=== PATIENT | male | born 1965 | race African-American/Black ===

== ENCOUNTER 2018-06-04 06:55 | Inpatient (IN) | payer BC ==
[~2018-06-04] VITALS: Ht 188 cm; Wt 90.7 kg
[~2018-06-04 06:55] MED LIST: NKM; TERBINAFINE HC250 MG PO
[2018-06-04] MEDS ORDERED: FOLIC ACID0.4 MG ORAL (07:10)
[2018-06-04 07:16] VITALS: BP 116/76
--- NOTE | 2018-06-04 07:35 | Emergency Room Report ---
History of Present Illness General Chief Complaint: Dizziness Source: Patient Present Illness HPI Patient presents with reports of lightheadedness dizziness And report of syncopal episode at home Patient reports that he was in the shower patient's partner reports that he was in the restroom as well when he heard the fall Patient appeared to be disoriented for a few seconds and became oriented soon after that Patient complains of weakness and lightheadedness Denies any chest pain or short of breath denies any vomiting or diarrhea Denies any recent fevers or illness Also complaining of right mid back pain Allergies: Coded Allergies: No Known Allergies (Unverified , 03/23/16) Patient History Past Medical History: see triage record Pertinent Family History: none Reviewed Nursing Documentation: PMH: Agreed; PSxH: Agreed Nursing Documentation-PMH Past Medical History: No History, Except For Hx Cardiac Problems: No Hx Cancer: No Hx Gastrointestinal Problems: Yes Hx Neurological Problems: No Review of Systems All Other Systems: negative except mentioned in HPI Physical Exam Vital Signs Date Time Temp Pulse Resp B/P (MAP) Pulse Ox O2 Delivery O2 Flow Rate FiO2 06/04/18 07:05 98.2 92 16 116/76 95 Room Air Sp02 EP Interpretation: reviewed, normal General Appearance: well appearing, no apparent distress Head: normocephalic, atraumatic Eyes: bilateral eye PERRL, bilateral eye EOMI ENT: hearing grossly normal, normal pharynx, TMs + canals normal, uvula midline Neck: full range of motion, supple, no meningismus, no bony tend Respiratory: lungs clear, normal breath sounds, no rhonchi, no respiratory distress, no retraction, no accessory muscle use Cardiovascular #1: normal peripheral pulses, regular rate, rhythm, no edema, no gallop, no JVD, no murmur Gastrointestinal: normal bowel sounds, non tender, soft, no mass, no organomegaly, non-distended, no guarding, no hernia, no pulsatile mass, no rebound Genitourinary: no CVA tenderness Musculoskeletal: normal inspection Neurologic: oriented x3, responsive, teleprinter installer III-XII nml as tested, motor strength/ tone normal, sensory intact Psychiatric: mood/affect normal Skin: normal color, no rash, warm/dry, palpation normal Lymphatic: normal inspection, no adenopathy Medical Decision Making Diagnostic Impression: Primary Impression: Syncope Additional Impression: Dizziness ER Course Patient is a fairly complex patient with multiple differential to consideration including but not limited to cardiac cardiopulmonary and vascular emergencies Patient at this time is awake and alert GCS 15 Does not meet criteria for any further imaging of the brain Patient's blood work reveals pancytopenia Patient reports some lightheadedness still At this time will require further inpatient care In discussion with the patient's primary physician he reports that the patient did have previous alcohol disease has missed several follow-ups with him And patient will have close inpatient care Labs Test 06/04/18 07:52 06/04/18 15:09 06/04/18 23:20 White Blood Count 4.2 K/UL (4.8-10.8) Red Blood Count 5.54 M/UL (4.70-6.10) Hemoglobin 13.3 G/DL (14.2-18.0) Hematocrit 43.5 % (42.0-52.0) Mean Corpuscular Volume 79 FL (80-99) Mean Corpuscular Hemoglobin 24.0 PG (27.0-31.0) Mean Corpuscular Hemoglobin Concent 30.6 G/DL (32.0-36.0) Red Cell Distribution Width 14.0 % (11.6-14.8) Platelet Count 146 K/UL (150-450) Mean Platelet Volume 6.8 FL (6.5-10.1) Neutrophils (%) (Auto) 40.6 % (45.0-75.0) Lymphocytes (%) (Auto) 36.9 % (20.0-45.0) Monocytes (%) (Auto) 16.7 % (1.0-10.0) Eosinophils (%) (Auto) 4.0 % (0.0-3.0) Basophils (%) (Auto) 1.8 % (0.0-2.0) Sodium Level 142 MMOL/L (136-145) Potassium Level 3.7 MMOL/L (3.5-5.1) Chloride Level 107 MMOL/L (98-107) Carbon Dioxide Level 26 MMOL/L (21-32) Anion Gap 9 mmol/L (5-15) Blood Urea Nitrogen 11 mg/dL (7-18) Creatinine 1.0 MG/DL (0.55-1.30) Estimat Glomerular Filtration Rate > 60 mL/min (>60) Glucose Level 102 MG/DL (74-106) Calcium Level 8.6 MG/DL (8.5-10.1) Total Bilirubin 0.6 MG/DL (0.2-1.0) Aspartate Amino Transf (AST/SGOT) 105 U/L (15-37) Alanine Aminotransferase (ALT/SGPT) 79 U/L (12-78) Alkaline Phosphatase 95 U/L (46-116) Total Creatine Kinase 107 U/L (26-308) Creatine Kinase MB < 0.5 NG/ML (0.0-3.6) Creatine Kinase MB Relative Index 0.4 Troponin I 0.009 ng/mL (0.000-0.056) Total Protein 7.4 G/DL (6.4-8.2) Albumin 3.9 G/DL (3.4-5.0) Globulin 3.5 g/dL Albumin/Globulin Ratio 1.1 (1.0-2.7) Lipase 164 U/L (73-393) Prothrombin Time 11.3 SEC (9.30-11.50) Prothromb Time International Ratio 1.1 (0.9-1.1) Activated Partial Thromboplast Time 27 SEC (23-33) Serum Alcohol 6 mg/dL Urine Color Yellow Urine Appearance Clear Urine pH 7 (4.5-8.0) Urine Specific [place] 1.010 (1.005-1.035) Urine Protein Negative (NEGATIVE) Urine Glucose (UA) Negative (NEGATIVE) Urine Ketones Negative (NEGATIVE) Urine Blood 1+ (NEGATIVE) Urine Nitrite Negative (NEGATIVE) Urine Bilirubin Negative (NEGATIVE) Urine Urobilinogen 12 MG/DL (0.0-1.0) Urine Leukocyte Esterase 1+ (NEGATIVE) Urine RBC 0-2 /HPF (0 - 0) Urine WBC 0-2 /HPF (0 - 0) Urine Squamous Epithelial Cells None /LPF (NONE/OCC) Urine Bacteria None /HPF (NONE) Urine Opiates Screen Negative (NEGATIVE) Urine Barbiturates Screen Negative (NEGATIVE) Phencyclidine (PCP) Screen Negative (NEGATIVE) Urine Amphetamines Screen Negative (NEGATIVE) Urine Benzodiazepines Screen Negative (NEGATIVE) Urine Cocaine Screen Negative (NEGATIVE) Urine Marijuana (THC) Screen Negative (NEGATIVE) EKG Diagnostic Results Rate: normal Rhythm: NSR ST Segments: no acute changes Rhythm Strip Diag. Results EP Interpretation: yes Rate: 60 Rhythm: NSR, no PVC's, no ectopy Chest X-Ray Diagnostic Results Chest X-Ray Diagnostic Results : Chest X-Ray Ordered: Yes # of Views/Limited/Complete: 1 View Indication: Chest Pain EP Interpretation: Yes Interpretation: no consolidation, no effusion, no pneumothorax Impression: No acute disease Electronically Signed by: Jayson Watt DO Last Vital Signs Date Time Temp Pulse Resp B/P (MAP) Pulse Ox O2 Delivery O2 Flow Rate FiO2 06/04/18 07:16 92 16 Room Air 06/04/18 07:16 98.2 116/76 95 Status: improved Disposition: ADMITTED INPATIENT Condition: Serious Referrals: NON PHYSICIAN (PCP) Jayson Watt DO Jun 04, 2018 07:35
[2018-06-04 08:01] LABS: BASOPHILS % (AUTO) 1.8 % (0.0-2.0); HEMATOCRIT 43.5 % (42.0-52.0); HEMOGLOBIN 13.3 G/DL (14.2-18.0); LYMPHOCYTES % (AUTO) 36.9 % (20.0-45.0); MEAN CORPUSCULAR VOLUME 79 FL (80-99); MONOCYTES % (AUTO) 16.7 % (1.0-10.0); NEUTROPHILS % (AUTO) 40.6 % (45.0-75.0); PLATELET COUNT 146 K/UL (150-450); RED BLOOD COUNT 5.54 M/UL (4.70-6.10); WHITE BLOOD COUNT 4.2 K/UL (4.8-10.8)
[2018-06-04 08:13] LABS: ANION GAP 9 mmol/L (5-15); BLOOD UREA NITROGEN 11 mg/dL (7-18); CALCIUM 8.6 MG/DL (8.5-10.1); CARBON DIOXIDE 26 MMOL/L (21-32); CHLORIDE 107 MMOL/L (98-107); POTASSIUM 3.7 MMOL/L (3.5-5.1); SODIUM 142 MMOL/L (136-145)
[2018-06-04 08:27] LABS: ALANINE AMINOTRANSFERASE 79 U/L (12-78); ALBUMIN 3.9 G/DL (3.4-5.0); ALBUMIN/GLOBULIN RATIO 1.1 (1.0-2.7); ALKALINE PHOSPHATASE 95 U/L (46-116); ASPARTATE AMINO TRANSFERASE 105 U/L (15-37); BILIRUBIN,TOTAL 0.6 MG/DL (0.2-1.0); CKMB < 0.5 NG/ML (0.0-3.6); CREATINE KINASE 107 U/L (26-308)
[2018-06-04 09:19] VITALS: BP 123/81
[2018-06-04 09:40] VITALS: BP 123/81
[2018-06-04 12:00] VITALS: BP 119/78
--- NOTE | 2018-06-04 12:15 | Diagnostic Imaging Report ---
Indication: Shortness of breath Technique: One view of the chest Comparison: none Findings: Lungs and pleural spaces are clear. Heart size is normal Impression: No acute process
[2018-06-04] MEDS ORDERED: Docusate 250mg cap ORAL PRN (13:00)
[2018-06-04] MEDS ORDERED: LORazepam Inj 2mg/ml 1ml IV PRN (13:00)
[2018-06-04] MEDS ORDERED: Morphine Sulfate 4mg/ml Inj (IV/IM USE ONLY) IVP PRN (13:00)
[2018-06-04] MEDS ORDERED: Folic Acid 1 MG, Magnesium Sulfate 2,000 MG, Multivitamin - 12 Injection 10 ML in Sodiu... IV SCH (14:30)
[2018-06-04] MEDS ORDERED: Thiamine 100mg in D5W 55ml IVPB SCH (14:30)
--- NOTE | 2018-06-04 15:51 | Diagnostic Imaging Report ---
Indication: Trauma due to fall, right mid back pain Technique: Sagittal T1 and T2 fast spin echo, sagittal STIR, axial T1 and T2 fast spin-echo images of the lumbar spine Comparison: none Findings: The bony alignment is normal. The vertebral body heights are preserved. The vertebral marrow signal is normal the disc spaces are preserved. There is mild desiccation of the L3-4 and L4-5 discs. Conus medullaris terminates at the L1 level. At L4-5, there is mild neural foraminal narrowing. This is predominantly due to ligamentum flavum hypertrophy, with slight contribution by minimal circumferential annular bulge. At the remaining levels, no significant disc bulge or protrusion, spinal stenosis, or neural foraminal stenosis. The included extraspinal soft tissues are unremarkable. Impression: No acute process Minimal L4-5 neural foramina narrowing, probably not significant
[2018-06-04 16:00] VITALS: BP 145/87
--- NOTE | 2018-06-04 16:00 | Diagnostic Imaging Report ---
Indication: Fall, trauma, neck and mid back pain Technique: Spiral acquisitions obtained through the cervical spine. No IV contrast utilized. Multiplanar reconstructions were generated. Total dose length product 367.28 mGycm. CTDIvol(s) 16.94 mGy. Dose reduction achieved using automated exposure control. Comparison: none Findings: Bony alignment is normal. Vertebral body heights are preserved. No prevertebral soft tissue swelling. The disc spaces are preserved. No acute fractures. No dislocations. No significant disc bulge or protrusion, spinal stenosis, or neural foraminal stenosis demonstrated. Included lung apices are clear. The included extraspinal soft tissues are unremarkable. Impression: No acute bony trauma or other significant abnormality demonstrated The CT scanner at [facility] is accredited by the [employer] and the scans are performed using protocols designed to limit radiation exposure to as low as reasonably achievable to attain images of sufficient resolution adequate for diagnostic evaluation.
--- NOTE | 2018-06-04 16:01 | Diagnostic Imaging Report ---
Indications: Syncope Technique: Spiral acquisitions obtained through the brain. Angled axial and coronal 5 x 5 mm slices were reconstructed. Total dose length product 1432.39 mGycm. CTDI vol(s) 70.38 mGy. Dose reduction achieved using automated exposure control Comparison: None. Findings: No acute intracranial hemorrhage or edema. No mass effect nor midline shift. Normal osman-white differentiation. Normal-sized ventricles and extra axial CSF spaces. The mastoids are clear. There is minimal ethmoid sinus mucosal disease. The calvarium is intact. Impression: Negative The CT scanner at [facility] is accredited by the [employer] and the scans are performed using protocols designed to limit radiation exposure to as low as reasonably achievable to attain images of sufficient resolution adequate for diagnostic evaluation.
[2018-06-04 16:09] LABS: INR 1.1 (0.9-1.1)
--- NOTE | 2018-06-04 16:48 | History & Physical ---
History of Present Illness General Date patient seen: Jun 04, 2018 Reason for Hospitalization: Dizziness Present Illness HPI Mr. Tamez is a 53-year-old male with a history of alcohol abuse who presents today after a syncopal episode. Patient states he was in the shower today felt dizzy passed out and fell back. Patient's partner was also in the bathroom and heard him fall. Patient denies hitting his head denies any vision changes or headaches, however is complaining of lower back pain denies any any radiation to the lower extremities. Denies any GI or incontinence. He denies any chest pain shortness of breath abdominal pain, denies any nausea vomiting fevers or chills. Reviewed medications, patient does not take any medications at home Denies any significant past family history the patient is aware of. Social hx reviewed, patient states he drinks alcohol daily denies any withdrawals, denies smoking or drug use CODE STATUS reviewed would like to remain full code Allergies: Coded Allergies: No Known Allergies (Unverified , 03/23/16) Medication History Scheduled Folic Acid (Folic Acid), Unknown Dose ORAL DAILY, (Reported) No Known Medications* (NKM - No Known Medications*), 0 ., (Reported) Terbinafine Hcl* (Lamisil*), MG PO DAILY, (Reported) Patient History History Provided By: Patient, Significant Other, Medical Record Healthcare decision maker Resuscitation status Advanced Directive on File No Review of Systems Review of Symptoms General ROS: no weight loss or fever Psychological ROS: no depression or mood changes, no memory loss Ophthalmic ROS: no visual changes or eye irritation ENT ROS: no nasal congestion, hearing loss, dizziness Allergy and Immunology ROS: no allergic symptoms or urticaria Hematological and Lymphatic ROS: no swollen glands, unusual bleeding or bruising Endocrine ROS: no polyuria, polydipsia, weight changes, temperature intolerance Respiratory ROS: no cough, shortness of breath, or wheezing Cardiovascular ROS: no chest pain or dyspnea on exertion Gastrointestinal ROS: denies abdominal pain, bright red blood in stool. Musculoskeletal ROS: no myalgias or arthralgias. +lower back pain. Neurological ROS: no TIA or stroke symptoms, syncope and fall Dermatological ROS: no new or changing skin lesions, rashes or pruritis Physical Exam Physical Exam General appearance: alert, cooperative, no distress, appears stated age Head: Normocephalic, without obvious abnormality, atraumatic Eyes: conjunctivae/corneas clear. PERRL, EOM's intact. Fundi benign Throat: Lips, mucosa, and tongue normal. Teeth and gums normal Neck: supple, symmetrical, trachea midline, no adenopathy, thyroid: not enlarged, symmetric, no tenderness/mass/nodules, no carotid bruit and no JVD Lungs: clear to auscultation bilaterally Heart: regular rate and rhythm, S1, S2 normal, no murmur, click, rub or gallop Abdomen: soft, non-tender. Bowel sounds normal. No masses, no organomegaly Extremities: extremities normal, atraumatic, no cyanosis or edema Pulses: 2+ and symmetric Skin: Skin color, texture, turgor normal. No rashes or lesions Neurologic: Grossly normal Last 24 Hour Vital Signs Date Time Temp Pulse Resp B/P (MAP) Pulse Ox O2 Delivery O2 Flow Rate FiO2 06/04/18 12:00 99.0 82 16 119/78 (92) 98 06/04/18 11:06 Room Air 06/04/18 10:05 98.0 74 18 123/81 100 Room Air 06/04/18 09:40 98.9 74 16 123/81 (95) 06/04/18 09:19 98.0 74 18 123/81 100 Room Air 06/04/18 08:27 98.0 06/04/18 07:16 92 16 Room Air 06/04/18 07:16 98.2 92 16 116/76 95 Room Air 06/04/18 07:05 98.2 92 16 116/76 95 Room Air Laboratory Tests Test 06/04/18 07:52 06/04/18 15:09 White Blood Count 4.2 K/UL (4.8-10.8) L Red Blood Count 5.54 M/UL (4.70-6.10) Hemoglobin 13.3 G/DL (14.2-18.0) L Hematocrit 43.5 % (42.0-52.0) Mean Corpuscular Volume 79 FL (80-99) L Mean Corpuscular Hemoglobin 24.0 PG (27.0-31.0) L Mean Corpuscular Hemoglobin Concent 30.6 G/DL (32.0-36.0) L Red Cell Distribution Width 14.0 % (11.6-14.8) Platelet Count 146 K/UL (150-450) L Mean Platelet Volume 6.8 FL (6.5-10.1) Neutrophils (%) (Auto) 40.6 % (45.0-75.0) L Lymphocytes (%) (Auto) 36.9 % (20.0-45.0) Monocytes (%) (Auto) 16.7 % (1.0-10.0) H Eosinophils (%) (Auto) 4.0 % (0.0-3.0) H Basophils (%) (Auto) 1.8 % (0.0-2.0) Sodium Level 142 MMOL/L (136-145) Potassium Level 3.7 MMOL/L (3.5-5.1) Chloride Level 107 MMOL/L (98-107) Carbon Dioxide Level 26 MMOL/L (21-32) Anion Gap 9 mmol/L (5-15) Blood Urea Nitrogen 11 mg/dL (7-18) Creatinine 1.0 MG/DL (0.55-1.30) Estimat Glomerular Filtration Rate > 60 mL/min (>60) Glucose Level 102 MG/DL (74-106) Calcium Level 8.6 MG/DL (8.5-10.1) Total Bilirubin 0.6 MG/DL (0.2-1.0) Aspartate Amino Transf (AST/SGOT) 105 U/L (15-37) H Alanine Aminotransferase (ALT/SGPT) 79 U/L (12-78) H Alkaline Phosphatase 95 U/L (46-116) Total Creatine Kinase 107 U/L (26-308) Creatine Kinase MB < 0.5 NG/ML (0.0-3.6) Creatine Kinase MB Relative Index 0.4 Troponin I 0.009 ng/mL (0.000-0.056) Total Protein 7.4 G/DL (6.4-8.2) Albumin 3.9 G/DL (3.4-5.0) Globulin 3.5 g/dL Albumin/Globulin Ratio 1.1 (1.0-2.7) Lipase 164 U/L (73-393) Prothrombin Time 11.3 SEC (9.30-11.50) Prothromb Time International Ratio 1.1 (0.9-1.1) Activated Partial Thromboplast Time 27 SEC (23-33) Height (Feet): 6 Height (Inches): 2.00 Weight (Pounds): 200 Medications Current Medications Medications (Trade) Dose Ordered Sig/Bryan Route PRN Reason Start Time Stop Time Status Last Admin Dose Admin Docusate Sodium (Colace) 250 mg DAILYPRN PRN ORAL constipation 06/04/18 13:00 07/04/18 12:59 Folic Acid 1 mg/ Magnesium Sulfate 2000 mg/ Multivitamins 10 ml/Sodium Chloride 1,014.2 ml @ 125 mls/ hr Q24H IV 06/04/18 14:30 07/04/18 14:29 06/04/18 15:21 Heparin Sodium (Porcine) (Heparin 5000 units/ml) 5,000 units EVERY 12 HOURS SUBQ 06/04/18 21:00 07/04/18 20:59 Lorazepam (Ativan 2mg/ml 1ml) 1 mg Q4H PRN IV For Anxiety 06/04/18 13:00 06/11/18 12:59 Morphine Sulfate (Morphine Sulfate) 2 mg Q6H PRN IVP PAIN 4-10 06/04/18 13:00 06/11/18 12:59 Pantoprazole (Protonix) 40 mg DAILY ORAL 06/05/18 09:00 07/05/18 08:59 Thiamine HCl 100 mg/Dextrose 56 ml @ 112 mls/hr Q24H IVPB 06/04/18 14:30 07/04/18 14:29 06/04/18 14:43 Assessment/Plan Status: stable Status Narrative #Syncope #Ground-level fall #Alcohol abuse #Intractable back pain #Lumbar back pain #Transaminitis #Pancytopenia #Microcytic anemia #Bone marrow suppression #Dehydration Fall and syncope likely due to alcohol abuse/dehydration AST ALT ratio that of alcohol abuse Pancytopenia and microcytic anemia likely due to bone marrow suppression and malnutrition Considering patient fell will order CT head without contrast, CT C-spine without contrast, MRI lumbar spine without contrast CIWA protocol Ativan as needed for withdrawals Banana bag thiamine folate Fall precautions Morphine 2 mg IV as needed for severe pain PT evaluation Pending alcohol level Check urine drug screen for to rule out any other drugs used Prophylaxis; SCDs and heparin subq CODE STATUS full code Code Status: Full Hospital Classification Declaration: Based on this initial evaluation, and depending on the patient's clinical course, I anticipate that this patient will require hospitalization for 2-3 days for alcohol abuse, syncope, pain control and close respiratory/hemodynamic monitoring. Disposition: Once the patient is stable to leave the hospital, I anticipate the patient will likely be discharged to the following environment: home I spent 71 minutes on this patient's case, and 43 minutes were dedicated to counseling and/or care coordination. Discussed with patient/family, nursing staff, SW/CM regarding clinical status, treatment course, and disposition planning. Time of note may not reflect time of encounter. MIPS Hospital declaration INPATIENT level of care is warranted for this patient MIPS ([employer]-based Incentive Payment System) Applicable CPT: 23691 CHECK ALL THAT ARE MET: Measure #5 (CHF): All ages. Prescribe JEREMIE/ARB upon discharge for patients with left ventricular systolic dysfunction. If not, the reason is clearly documented in the medical chart. Measure #8 (CHF): All ages. Prescribe a beta [place] upon discharge for patients with left ventricular systolic dysfunction. If not, the reason is clearly documented in the medical chart. x Measure #47 Advance care plan or surrogate decision maker documented in the medical record. x Measure #130 The provider has documented, updated, or reviewed the patients current medication list and has documented it in the patients note. Measure #374 (All): Send report to referring provider. Measure #407(Sepsis due to MSSA bacteremia): Age 18+ Patient treated with a beta-lactam antibiotic (Nafcillin, Oxacillin or Cefazolin) as definitive therapy. MEDICAL COMPLEXITY High complexity medical decision making (need 2/3 categories) Problem - need 4 points x Acute/new problem with new plan for workup (4 points, 1 max) Acute/new problem without additional workup (3 points, 1 max) x Unstable chronic problem actively being managed (2 point each, 2 max) Stable chronic problem actively being managed (1 point each, 2 max) x Self-limited/transient process (constipation, muscle ache, etc) (1 point each , 2 max) Data - need 4 points x Reviewed labs/imaging studies (1 points, 2 max) x Independent review of imaging (EKG, xrays, etc) (2 points, 2 max) x Discussed case with consult/other MD/RN (2 points, 2 max) High Risk - qualify if have one of the following: x Severe exacerbation of acute problem, acute mental status change, IV narcotics, monitoring drug levels (vancomycin, INR, tacrolimus etc) Demetria Sebastian MD Jun 04, 2018 16:48
--- NOTE | 2018-06-04 16:49 | General Progress Note ---
Advance Care Planning Advance Care Planning Advance Care Planning [facility] An independent Hospitalist group, where every patient is our [facility] Internal Medicine Hospitalist Advanced Care Planning Note Please contact us at Date of Discussion: A [id number] discussion with the patient regarding the patient's advanced care planning took place during this hospitalization on the above date. The discussion included the explanation and discussion of advance directives and associated forms/documents, as well as the patient's current code status. We also discussed at length the patient's medical conditions (both acute and chronic), general prognosis, treatment options, and goals of care. The following summarizes the discussion: Advance Care Planning/Goals of Care: - Will attempt to fill out an AD and/or POLST with the patient prior to discharge, if not already completed - Continue current evaluation and management of any acute and chronic medical issues - Will continue to support the patient/family - Will continue to discuss both short- and long-term goals of care DPOA-HC/Surrogate Decision Maker: None currently appointed Code Status: Full Code Advanced Care Planning Forms/Documents Completed: Deferred until later encounter/visit A total of 35 minutes was spent on this discussion, including counseling, answering questions, and completing, if any, pertinent advanced care planning forms/documents. Time of note may not reflect time of encounter. Demetria Sebastian MD Jun 04, 2018 16:49
[2018-06-04 20:00] VITALS: BP 153/92
[2018-06-04] MEDS: Heparin 5000 units/ml inj SUBQ SCH (21:00)
[2018-06-04 23:35] LABS: APPEARANCE,URINE CLEAR; BILIRUBIN, URINE NEGATIVE (NEGATIVE); COLOR,URINE YELLOW; GLUCOSE, URINE (UA) NEGATIVE (NEGATIVE); KETONES,URINE NEGATIVE (NEGATIVE); LEUKOCYTE ESTERASE ,URINE 1+ (NEGATIVE); NITRITE,URINE NEGATIVE (NEGATIVE); PH,URINE 7 (4.5-8.0); PROTEIN,URINE NEGATIVE (NEGATIVE); UROBILINOGEN,URINE 12 MG/DL (0.0-1.0)
[2018-06-05] VITALS: BP 157/93
[2018-06-05 04:00] VITALS: BP 150/90
[2018-06-05 07:44] LABS: BASOPHILS % (AUTO) 1.6 % (0.0-2.0); EOSINOPHILS % (AUTO) 3.6 % (0.0-3.0); HEMATOCRIT 40.2 % (42.0-52.0); HEMOGLOBIN 12.7 G/DL (14.2-18.0); LYMPHOCYTES % (AUTO) 26.4 % (20.0-45.0); MEAN CORPUSCULAR VOLUME 78 FL (80-99); MONOCYTES % (AUTO) 16.9 % (1.0-10.0); NEUTROPHILS % (AUTO) 51.5 % (45.0-75.0); PLATELET COUNT 128 K/UL (150-450); RED BLOOD COUNT 5.17 M/UL (4.70-6.10); RED CELL DISTRIBUTION WIDTH 13.7 % (11.6-14.8); WHITE BLOOD COUNT 5.2 K/UL (4.8-10.8)
[2018-06-05 08:05] LABS: ANION GAP 9 mmol/L (5-15); BLOOD UREA NITROGEN 9 mg/dL (7-18); CALCIUM 9.3 MG/DL (8.5-10.1); CARBON DIOXIDE 28 MMOL/L (21-32); CHLORIDE 103 MMOL/L (98-107); SODIUM 140 MMOL/L (136-145)
[2018-06-05] MEDS: Heparin 5000 units/ml inj SUBQ SCH (08:51)
--- NOTE | 2018-06-05 09:09 | Discharge Summary ---
Discharge Summary Hospital Course Date of Admission Jun 04, 2018 at 08:04 Date of Discharge 06/05/18 Admitting Diagnosis syncope HPI Nathanael Tamez is a 53 year old male who was admitted on Jun 04, 2018 at 08:04 for Syncope Mr. Tamez is a 53-year-old male with a history of alcohol abuse who presents today after a syncopal episode. Patient states he was in the shower today felt dizzy passed out and fell back. Patient's partner was also in the bathroom and heard him fall. Patient denies hitting his head denies any vision changes or headaches, however is complaining of lower back pain denies any any radiation to the lower extremities. Denies any GI or incontinence. He denies any chest pain shortness of breath abdominal pain, denies any nausea vomiting fevers or chills. Physical Exam Physical Exam General appearance: alert, cooperative, no distress, appears stated age Head: Normocephalic, without obvious abnormality, atraumatic Eyes: conjunctivae/corneas clear. PERRL, EOM's intact. Fundi benign Throat: Lips, mucosa, and tongue normal. Teeth and gums normal Neck: supple, symmetrical, trachea midline, no adenopathy, thyroid: not enlarged, symmetric, no tenderness/mass/nodules, no carotid bruit and no JVD Lungs: clear to auscultation bilaterally Heart: regular rate and rhythm, S1, S2 normal, no murmur, click, rub or gallop Abdomen: soft, non-tender. Bowel sounds normal. No masses, no organomegaly Extremities: extremities normal, atraumatic, no cyanosis or edema Pulses: 2+ and symmetric Skin: Skin color, texture, turgor normal. No rashes or lesions Neurologic: Grossly normal Hospital Course #Syncope #Ground-level fall #Alcohol abuse #Intractable back pain #Lumbar back pain #Transaminitis #Pancytopenia #Microcytic anemia #Bone marrow suppression #Dehydration improved with fluids and pain control patient educated on alcohol cessation for over 15 mins, will give information for AA patient able to walk around today without difficulty, not feeling dizzy today, denies any POWERS or vision changes lower back pain improving, discussed mobilization. imaging reviewed and neg. MRI Lumbar, CT c spine and ct head done. no disc herniation or nerve impingement or frx noted stable for dc today Discharge Condition Upon Discharge: stable Discharge Disposition Patient was discharged to home Discharge Diagnoses: (1) Dizziness (2) Syncope Demetria Sebastian MD Jun 05, 2018 09:09
== END 2018-06-05 10:00 | disposition home or self-care (01) | DRG 897 ==
LOC: EMR 07:29 → 2E 08:04 → EDBEDREQ 08:56 → 2E 11:47
DX: F10.10 Alcohol abuse, uncomplicated (principal); D61.818 Other pancytopenia; E46 Unspecified protein-calorie malnutrition; E86.0 Dehydration; R42 Dizziness and giddiness; R55 Syncope and collapse; R74.0 Nonspecific elevation of levels of transaminase and lactic acid dehydrogenase [LDH]; M54.5 Low back pain; Z68.25 Body mass index [BMI] 25.0-25.9, adult; Z91.81 History of falling
CPT/HCPCS: 36415; 70450; 71045; 72125; 72148; 80048; 80053; 80307; 80329; 81003; 82550; 82553; 83690; 84484; 85025; 85610; 85730; 93005; 99285

== ENCOUNTER 2020-06-20 09:00 | Emergency (ER) | payer BC ==
[~2020-06-20] VITALS: Ht 188 cm; Wt 99.8 kg
[~2020-06-20 09:00] MED LIST changes: +FOLIC ACID0.4 MG ORAL
--- NOTE | 2020-06-20 09:49 | Emergency Room Report ---
History of Present Illness General Chief Complaint: Abdominal Pain Source: Patient Present Illness HPI Patient presents with several days of epigastric pain with vomiting. He had to take an enema last night. There is scant amount of blood with that but the stool was brown. He is been vomiting bile. Rates the pain 8/10 at this time epigastric nonradiating. Patient returned to drinking July or August. He has had history of withdrawal and problems with his stomach in the past related to alcohol. He gets the shakes when he stops drinking. Is somewhat depressed about his work situation. He denies suicidal or homicidal ideation. Patient denies exposure to Covid positive contacts. No fevers, chills, sore throat, chest pain, palpitations, dysuria, shortness of breath, joint pain, rashes, visual changes, dizziness, headache. Patient admitted in 2019 for syncope. It was noted that there was alcohol use at that time. 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 COVID-19 Screening: Negative COVID-19 COVID-19 Testing Source: 3 weks ago Patient History Past Medical History: see triage record, old chart reviewed Social History: Reports: alcohol use; Denies: smoking Social History Narrative lives with partner Reviewed Nursing Documentation: PMH: Agreed; PSxH: Agreed Nursing Documentation-PMH Past Medical History: No Stated History Hx Cardiac Problems: No Hx Cancer: No Hx Gastrointestinal Problems: Yes Hx Neurological Problems: No Review of Systems All Other Systems: negative except mentioned in HPI Physical Exam Vital Signs Date Time Temp Pulse Resp B/P (MAP) Pulse Ox O2 Delivery O2 Flow Rate FiO2 06/20/20 09:17 98.4 120 16 131/90 (104) 96 Room Air Sp02 EP Interpretation: reviewed, normal General Appearance: well appearing, no apparent distress, GCS 15 Head: normocephalic Eyes: bilateral eye normal inspection, bilateral eye PERRL, bilateral eye EOMI ENT: moist mucus membranes Neck: supple Respiratory: lungs clear, normal breath sounds Cardiovascular #1: regular rate, rhythm Cardiovascular #2: 2+ radial (R) Gastrointestinal: normal inspection, normal bowel sounds, no mass, non- distended, no guarding, no rebound, tenderness - Epigastric Genitourinary: no CVA tenderness Musculoskeletal: back normal, normal range of motion, gait/station normal Neurologic: alert, motor strength/tone normal, hardware developer III-XII nml as tested - Grosssly normal neurologic exam, DTRs symmetric, oriented x3, sensory intact, speech normal, other - Slightly tremulous Psychiatric: anxious Skin: no rash, warm/dry Medical Decision Making Diagnostic Impression: Primary Impression: Epigastric abdominal pain Additional Impressions: Nausea & vomiting Qualified Codes: R11.14 - Bilious vomiting Renal insufficiency Alcohol withdrawal Qualified Codes: F10.239 - Alcohol dependence with withdrawal, unspecified ER Course Patient presents with epigastric pain and vomiting bile. Differential includes gastritis, pancreatitis, alcohol abuse, peptic ulcer disease amongst others. Patient evaluated with EKG, chest x-ray, abdomen film and labs. Patient treated with IV hydration, Pepcid, Zofran and morphine. Patient placed on projects manager. Patient is tremulous and has a history of alcohol abuse. Will be monitored for alcohol withdrawal. Sinus tachycardia 128. Chest x-ray normal. Abdomen with nonspecific bowel gas pattern. Labs with elevated white count. Elevated BUN and creatinine. Blood alcohol negative. Patient abdominal pain improved with treatment. Still tachy. Trial PO fluids and NS. Tachycardia is improved but still present. RN reports problems with tremor and drinking fluids. Ativan given IV. Patient improved and tolerating oral intake. Pain is decreased. Tremor gone. CIWA-Ar = 7 Discussed findings and treatment plan with patient. Discussed outpatient observation. Patient stable for outpatient observation and treatment. Laboratory Tests Test 06/20/20 09:20 White Blood Count 11.7 K/UL (4.8-10.8) H Red Blood Count 6.29 M/UL (4.70-6.10) H Hemoglobin 15.1 G/DL (14.2-18.0) Hematocrit 53.1 % (42.0-52.0) H Mean Corpuscular Volume 84 FL (80-99) Mean Corpuscular Hemoglobin 24.1 PG (27.0-31.0) L Mean Corpuscular Hemoglobin Concent 28.5 G/DL (32.0-36.0) L Red Cell Distribution Width 16.0 % (11.6-14.8) H Platelet Count 201 K/UL (150-450) Mean Platelet Volume 8.1 FL (6.5-10.1) Neutrophils (%) (Auto) 75.2 % (45.0-75.0) H Lymphocytes (%) (Auto) 13.3 % (20.0-45.0) L Monocytes (%) (Auto) 10.1 % (1.0-10.0) H Eosinophils (%) (Auto) 0.3 % (0.0-3.0) Basophils (%) (Auto) 1.2 % (0.0-2.0) Prothrombin Time 12.7 SEC (9.30-11.50) H Prothrombin Time INR 1.2 (0.9-1.1) H Activated Partial Thromboplast Time 30 SEC (23-33) Urine Color [place] Urine Appearance Cloudy Urine pH 6 (4.5-8.0) Urine Specific [place] 1.015 (1.005-1.035) Urine Protein 3+ (NEGATIVE) H Urine Glucose (UA) Negative (NEGATIVE) Urine Ketones 3+ (NEGATIVE) H Urine Blood 2+ (NEGATIVE) H Urine Nitrite Positive (NEGATIVE) H Urine Bilirubin 2+ (NEGATIVE) H Urine Ictotest Negative (NEGATIVE) Urine Urobilinogen 4 MG/DL (0.0-1.0) H Urine Leukocyte Esterase 1+ (NEGATIVE) H Urine RBC 0-2 /HPF (0 - 0) H Urine WBC 0-2 /HPF (0 - 0) Urine Squamous Epithelial Cells Occasional /LPF Urine Bacteria Few /HPF (NONE) Urine Hyaline Casts 0-2 /LPF (NONE) H Urine Mucus Few /LPF (NONE/OCC) H Sodium Level 146 MMOL/L (136-145) H Potassium Level 4.3 MMOL/L (3.5-5.1) Chloride Level 111 MMOL/L (98-107) H Carbon Dioxide Level 28 MMOL/L (21-32) Anion Gap 7 mmol/L (5-15) Blood Urea Nitrogen 27 mg/dL (7-18) H Creatinine 1.7 MG/DL (0.55-1.30) H Estimated Glomerular Filtration Rate 51.4 mL/min (>60) Glucose Level 127 MG/DL (74-106) H Calcium Level 9.8 MG/DL (8.5-10.1) Total Bilirubin 2.2 MG/DL (0.2-1.0) H Direct Bilirubin 1.1 MG/DL (0.0-0.3) H Aspartate Amino Transferase (AST) 28 U/L (15-37) Alanine Aminotransferase (ALT) 12 U/L (12-78) Alkaline Phosphatase 76 U/L (46-116) Total Creatine Kinase 75 U/L (26-308) Troponin I 0.000 ng/mL (0.000-0.056) Total Protein 7.2 G/DL (6.4-8.2) Albumin 2.9 G/DL (3.4-5.0) L Globulin 4.3 g/dL Albumin/Globulin Ratio 0.7 (1.0-2.7) L Lipase 142 U/L (73-393) Serum Alcohol < 3 mg/dL EKG Diagnostic Results Rate: tachycardiac Rhythm: NSR ST Segments: no acute changes Rhythm Strip Diag. Results EP Interpretation: yes Rhythm: no PVC's, no ectopy, other - Tachycardia Chest X-Ray Diagnostic Results Chest X-Ray Diagnostic Results : Chest X-Ray Ordered: Yes # of Views/Limited/Complete: 1 View Indication: Other EP Interpretation: Yes Interpretation: no consolidation, no effusion, no pneumothorax Impression: No acute disease Electronically Signed by: Electronically signed by Franck Mckay MD Other X-Ray Diagnostic Results Other X-Ray Diagnostic Results : # of Views/Limited Vs Complete: 2 View Indication: Pain EP Interpretation: Yes Interpretation: nonspecific bowel gas, no sbo, other - No masses Impression: No acute disease Electronically Signed by: Electronically signed by Franck Mckay MD Last Vital Signs Date Time Temp Pulse Resp B/P (MAP) Pulse Ox O2 Delivery O2 Flow Rate FiO2 06/20/20 14:24 97.3 121 18 124/62 100 Room Air Status: improved Disposition: HOME, SELF-CARE Condition: Improved Scripts Ondansetron Odt* (ZOFRAN ODT*) 4 Mg Tab.rapdis 4 MG BC EVERY 8 HOURS PRN for Nausea & Vomiting, #6 TAB 0 Refills Prov: Franck Mckay MD 06/20/20 Famotidine* (Pepcid 20mg tablet*) 20 Mg Tablet 20 MG ORAL DAILY for Gerd, #30 TAB 0 Refills Prov: Franck Mckay MD 06/20/20 Chlordiazepoxide Hcl* (LIBRIUM*) 10 Mg Capsule 10 MG ORAL THREE TIMES A DAY, #15 CAP 0 Refills Prov: Franck Mckay MD 06/20/20 Referrals: NON PHYSICIAN (PCP) Franck Mckay MD Jun 20, 2020 09:49
[2020-06-20] MEDS ORDERED: Morphine Sulfate 4mg/ml Inj (IV USE ONLY) ONE (09:56)
[2020-06-20 09:58] VITALS: BP 126/72
[2020-06-20] MEDS ORDERED: Morphine Sulfate 4mg/ml Inj (IV USE ONLY) IVP ONE (10:00)
[2020-06-20 10:07] LABS: BASOPHILS % (AUTO) 1.2 % (0.0-2.0); EOSINOPHILS % (AUTO) 0.3 % (0.0-3.0); HEMATOCRIT 53.1 % (42.0-52.0); HEMOGLOBIN 15.1 G/DL (14.2-18.0); LYMPHOCYTES % (AUTO) 13.3 % (20.0-45.0); MEAN CORPUSCULAR VOLUME 84 FL (80-99); MONOCYTES % (AUTO) 10.1 % (1.0-10.0); NEUTROPHILS % (AUTO) 75.2 % (45.0-75.0); PLATELET COUNT 201 K/UL (150-450); RED BLOOD COUNT 6.29 M/UL (4.70-6.10); WHITE BLOOD COUNT 11.7 K/UL (4.8-10.8)
[2020-06-20 10:15] LABS: INR 1.2 (0.9-1.1)
[2020-06-20 10:19] LABS: APPEARANCE,URINE CLOUDY; BILIRUBIN, URINE 2+ (NEGATIVE); GLUCOSE, URINE (UA) NEGATIVE (NEGATIVE); KETONES,URINE 3+ (NEGATIVE); LEUKOCYTE ESTERASE ,URINE 1+ (NEGATIVE); NITRITE,URINE POSITIVE (NEGATIVE); PH,URINE 6 (4.5-8.0); PROTEIN,URINE 3+ (NEGATIVE); UROBILINOGEN,URINE 4 MG/DL (0.0-1.0)
[2020-06-20 10:23] LABS: COLOR,URINE ORANGE
[2020-06-20 10:30] LABS: ANION GAP 7 mmol/L (5-15); BLOOD UREA NITROGEN 27 mg/dL (7-18); CALCIUM 9.8 MG/DL (8.5-10.1); CARBON DIOXIDE 28 MMOL/L (21-32); CHLORIDE 111 MMOL/L (98-107); CREATININE 1.7 MG/DL (0.55-1.30); POTASSIUM 4.3 MMOL/L (3.5-5.1); SODIUM 146 MMOL/L (136-145)
[2020-06-20 10:40] LABS: ALANINE AMINOTRANSFERASE 12 U/L (12-78); ALBUMIN 2.9 G/DL (3.4-5.0); ALBUMIN/GLOBULIN RATIO 0.7 (1.0-2.7); ALKALINE PHOSPHATASE 76 U/L (46-116); ASPARTATE AMINO TRANSFERASE 28 U/L (15-37); BILIRUBIN,TOTAL 2.2 MG/DL (0.2-1.0); CREATINE KINASE 75 U/L (26-308)
[2020-06-20 10:42] LABS: BILIRUBIN,DIRECT 1.1 MG/DL (0.0-0.3)
--- NOTE | 2020-06-20 11:00 | NUR ---
Medication note: Unable to scan any of the medication
[2020-06-20 12:51] VITALS: BP 134/90
[2020-06-20] MEDS ORDERED: LORazepam Inj 2mg/ml 1ml IV ONE (13:00)
[2020-06-20 14:08] VITALS: BP 133/64
[2020-06-20] MEDS ORDERED: LIBRIUM10 MG ORAL (14:13)
[2020-06-20] MEDS ORDERED: FAMOTIDINE20 MG ORAL (14:13)
[2020-06-20] MEDS ORDERED: ONDANSETRON ODT4 MG BC (14:13)
[2020-06-20 14:24] VITALS: BP 124/62
--- NOTE | 2020-06-20 14:55 | Diagnostic Imaging Report ---
Indication: Chest pain Technique: One view of the chest Comparison: 06/04/2018 Findings: There is atelectasis in the left lung base. Lungs and pleural spaces otherwise clear. The heart is upper limits normal in size. Impression:
--- NOTE | 2020-06-20 16:58 | Diagnostic Imaging Report ---
Indication: Abdominal pain Technique: Supine view of the abdomen Comparison: none Findings: Bowel gas pattern is unremarkable. No masses or unusual calcifications Impression: Negative
== END 2020-06-20 14:25 | disposition home or self-care (01) ==
LOC: EMR 09:43
DX: F10.239 Alcohol dependence with withdrawal, unspecified (principal); R10.13 Epigastric pain; R11.14 Bilious vomiting; N28.9 Disorder of kidney and ureter, unspecified; Y90.0 Blood alcohol level of less than 20 mg/100 ml
CPT/HCPCS: 36415; 71045; 74018; 80053; 81003; 82248; 82550; 83690; 84484; 85025; 85610; 85730; 93005; 96361; 96374; 96375; 99284; G0480; J2270; J7030; S0028